=== PATIENT | male | born 1965 | race Two or more races ===

== ENCOUNTER 2017-02-11 14:49 | Emergency (ER) | payer BC ==
[~2017-02-11] VITALS: Ht 175.3 cm; Wt 93.9 kg
[2017-02-11] MEDS ORDERED: IV NORMAL SALINE 1000ML BAG 1,000 ML IV SCH (14:56)
[2017-02-11] MEDS ORDERED: FAMOTIDINE 20 MG/2 ML VIAL IVP ONE (15:00)
[2017-02-11] MEDS ORDERED: diphenhydrAMINE 50 MG/ML VIAL IV ONE (15:00)
[2017-02-11] MEDS ORDERED: methylPREDNISolone SOD SUCC PF 125 MG/2 ML VIAL. IV ONE (15:00)
[2017-02-11] MEDS ORDERED: EPINEPHrine 1 MG/ML VIAL IM ONE (15:00)
[2017-02-11] MEDS ORDERED: IPRATRPIUM/ALBUTEROL 0.5/2.5MG 3 ML NEBU. NEB ONE (15:00)
[2017-02-11 15:17] LABS: BASO % 0 % (0-3); EOS % 1 % (0-3); HEMATOCRIT 50.2 % (39.0-53.0); HEMOGLOBIN 17.1 g/dL (13.0-17.5); LYMPH # 6.2 x10^3/uL (1.0-4.8); LYMPH % 61 % (24-48); MEAN CORPUSCULAR HEMOGLOBIN 31 pg (25-35); MEAN CORPUSCULAR HGB CONC 34 g/dL (31-37); MEAN CORPUSCULAR VOLUME 93 fL (79-100); MONO % 5 % (0-9); NEUT % 33 % (31-73); PLATELET COUNT 353 x10^3/uL (140-400); RED BLOOD COUNT 5.43 x10^6/uL (4.30-5.70); RED CELL DISTRIBUTION WIDTH 13.3 % (11.5-14.5); WHITE BLOOD COUNT 10.3 x10^3/uL (4.0-11.0)
--- NOTE | 2017-02-11 15:31 | PHYS DOC ---
Past Medical History Past Medical History: No Pertinent History Past Surgical History: No Surgical History Alcohol Use: Occasionally Drug Use: None Adult General Chief Complaint Chief Complaint: ALLERGIC REACTION [facility] HPI Patient is a 51 year old male presenting to the emergency department for evaluation of vision changes diffuse rash and not feeling well. Patient says that this has happened multiple times in the past and he has been worked up for allergic reactions but no definitive etiology to his symptoms has ever been found. It is usually treated as an allergic reaction says that he gets better. Patient was eating [employer] and then went outside to wash the car when this reaction started. He ate same thing that he always does and that he has no known allergies. He describes the vision changes says that he only sees yellow. He says that he has a headache as well. Son is present to translate for patient and he is not wanting official language line sales representative malt liquors when I offered. Review of Systems Review of Systems Constitutional: Denies fever or chills [] Eyes: + change in visual acuity, redness. No eye pain [] HENT: Denies nasal congestion or sore throat [] Respiratory: Denies cough or shortness of breath [] Cardiovascular: No additional information not addressed in HPI [] GI: Denies abdominal pain, nausea, vomiting, bloody stools or diarrhea [] : Denies dysuria or hematuria [] Musculoskeletal: Denies back pain or joint pain [] Integument: + rash. No skin lesions [] Neurologic: + headache. No focal weakness or sensory changes [] Current Medications Current Medications Current Medications Medications (Trade) Dose Ordered Sig/Kevin Start Time Stop Time Status Last Admin Dose Admin Albuterol/ Ipratropium (Duoneb) 3 ml 1X ONCE 02/11/17 15:00 02/11/17 15:19 DC Diphenhydramine HCl (Benadryl) 50 mg 1X ONCE 02/11/17 15:00 02/11/17 15:19 DC 02/11/17 15:06 50 MG Epinephrine HCl (Adrenalin) 0.3 mg 1X ONCE 02/11/17 15:00 02/11/17 15:19 DC 02/11/17 14:57 0.3 MG Famotidine (Pepcid) 20 mg 1X ONCE 02/11/17 15:00 02/11/17 15:19 DC 6/3/17 15:06 20 MG Methylprednisolone Sodium Succinate (SOLU-Medrol 125MG VIAL) 125 mg 1X ONCE 02/11/17 15:00 02/11/17 15:19 DC 02/11/17 15:04 125 MG Potassium Chloride (Klor-Con) 40 meq 1X ONCE 02/11/17 16:00 02/11/17 16:01 DC Sodium Chloride 1,000 ml @ 1,000 mls/hr Q1H 02/11/17 14:56 02/11/17 15:55 DC 02/11/17 15:02 1,000 MLS/HR Allergies Allergies Allergies Coded Allergies Type Severity Reaction Last Updated Verified No Known Drug Allergies 02/11/17 No Physical Exam Physical Exam Constitutional: Well developed, well nourished, no acute distress, non-toxic appearance. [] HENT: Normocephalic, atraumatic, bilateral external ears normal, oropharynx erythematous but there is no swelling in his airway is very patent. Eyes: PERRLA, EOMI, conjunctiva injected bilaterally Neck: Normal range of motion, no tenderness, supple, no stridor. [] Cardiovascular:Heart rate regular rhythm, no murmur [] Lungs & Thorax: Bilateral breath sounds with expiratory wheezes noted Abdomen: Bowel sounds normal, soft, no tenderness, no masses, no pulsatile masses. [] Skin: Diffuse erythematous rash, few hives noted on neck and chest Back: No tenderness, no CVA tenderness. [] Extremities: No tenderness, no cyanosis, no clubbing, ROM intact, no edema. [] Neurologic: Alert and oriented X 3, normal motor function, normal sensory function, no focal deficits noted. [] Current Patient Data Vital Signs Vital Signs Date Time Temp Pulse Resp B/P (MAP) Pulse Ox O2 Delivery O2 Flow Rate FiO2 02/11/17 16:08 94 Room Air 02/11/17 14:49 97.4 80 22 150/80 (103) 97.4 Lab Values Laboratory Tests Test 02/11/17 14:52 White Blood Count 10.3 x10^3/uL (4.0-11.0) Red Blood Count 5.43 x10^6/uL (4.30-5.70) Hemoglobin 17.1 g/dL (13.0-17.5) Hematocrit 50.2 % (39.0-53.0) Mean Corpuscular Volume 93 fL (79-100) Mean Corpuscular Hemoglobin 31 pg (25-35) Mean Corpuscular Hemoglobin Concent 34 g/dL (31-37) Red Cell Distribution Width 13.3 % (11.5-14.5) Platelet Count 353 x10^3/uL (140-400) Neutrophils (%) (Auto) 33 % (31-73) Lymphocytes (%) (Auto) 61 % (24-48) H Monocytes (%) (Auto) 5 % (0-9) Eosinophils (%) (Auto) 1 % (0-3) Basophils (%) (Auto) 0 % (0-3) Neutrophils # (Auto) 3.4 x10^3uL (1.8-7.7) Lymphocytes # (Auto) 6.2 x10^3/uL (1.0-4.8) H Monocytes # (Auto) 0.5 x10^3/uL (0.0-1.1) Eosinophils # (Auto) 0.1 x10^3/uL (0.0-0.7) Basophils # (Auto) 0.0 x10^3/uL (0.0-0.2) Platelet Estimate Adequate (ADEQUATE) Sodium Level 147 mmol/L (136-145) H Potassium Level 3.1 mmol/L (3.5-5.1) L Chloride Level 108 mmol/L (98-107) H Carbon Dioxide Level 24 mmol/L (21-32) Anion Gap 15 (6-14) H Blood Urea Nitrogen 20 mg/dL (8-26) Creatinine 1.5 mg/dL (0.7-1.3) H Estimated GFR (Cockcroft-Gault) 49.7 BUN/Creatinine Ratio 13 (6-20) Glucose Level 146 mg/dL (70-99) H Calcium Level 9.2 mg/dL (8.5-10.1) Total Bilirubin 0.5 mg/dL (0.2-1.0) Direct Bilirubin 0.1 mg/dL (0.0-0.2) Aspartate Amino Transferase (AST) 26 U/L (15-37) Alanine Aminotransferase (ALT) 39 U/L (16-63) Alkaline Phosphatase 121 U/L (46-116) H Creatine Kinase 270 U/L (39-308) Total Protein 7.2 g/dL (6.4-8.2) Albumin 3.8 g/dL (3.4-5.0) Albumin/Globulin Ratio 1.1 (1.0-1.7) Laboratory Tests 02/11/17 14:52 Laboratory Tests 02/11/17 14:52 EKG EKG [] Radiology/Procedures Radiology/Procedures Examination: CT head without contrast HISTORY: History of headache COMPARISON: None available TECHNIQUE: Axial CT images of the head was performed without contrast Exposure: One or more of the following individualized dose reduction techniques were utilized for this examination: 1. Automated exposure control 2. Adjustment of the mA and/or kV according to patient size 3. Use of iterative reconstruction technique FINDINGS: There is no evidence of midline shift. There is no acute intracranial hemorrhage or extra-axial fluid collection identified. The jaramillo-white matter differentiation is maintained. Mild bilateral periventricular white matter hypodensities likely chronic small vessel ischemic disease. The visualized basal cisterns aren't effaced. The visualized paranasal sinuses, mastoid air cells are clear. IMPRESSION: No acute intracranial findings. Electronically signed by: Allan Cook MD (02/11/2017 4:14 PM) DICTATED and SIGNED BY: ALLAN COOK MD DATE: 02/11/17 1618 Course & Med Decision Making Course & Med Decision Making We will go ahead and treat as allergic reaction with epinephrine and Solu- Medrol Pepcid and Benadryl. Patient's symptoms are resolved and he was feeling better and asking to go home. He has some sort of unspecified allergic reaction to need specialty follow-up. I told him to follow with an laser print operator and I'll prescribe an epinephrine pen recommend steroids and Benadryl at home. Patient aware and agreeable with plan for discharge and verbalized understanding of the need for short-term follow-up in the strict ER return precautions discussed worsening pain rash shortness of breath or other general concerns. Dragon Disclaimer Dragon Disclaimer This electronic medical record was generated, in whole or in part, using a voice recognition dictation system. Departure Departure Impression: Primary Impression: Allergic reaction Additional Impression: Headache Disposition: 01 HOME, SELF-CARE Condition: GOOD Patient Instructions: Anaphylactic Reaction Additional Instructions: Follow with the specialist. Call this number . Use the epinephrine pen only if he has signs of anaphylaxis. Take 25-50 mg of Benadryl every 4-6 hours and come back to the ER sooner with any worsening pain rash shortness of breath or other general concerns. Scripts Epinephrine (EPINEPHRINE) 0.3 Mg/0.3 Ml Auto.injct 0.3 MG IJ PRN Y for ANAPHYLAXIS, #2 SYR Prov: DEBORA BANEGAS DO 02/11/17 Prednisone (PREDNISONE) 50 Mg Tablet 1 TAB PO DAILY, #4 TAB Prov: DEBORA BANEGAS DO 02/11/17 Problem Qualifiers Primary Impression: Allergic reaction Encounter type: initial encounter Qualified Codes: T78.40XA - Allergy, unspecified, initial encounter DEBORA BANEGAS DO Feb 11, 2017 15:31
[2017-02-11 15:41] LABS: CALCIUM 9.2 mg/dL (8.5-10.1); CREATININE 1.5 mg/dL (0.7-1.3); GFR 49.7; POTASSIUM 3.1 mmol/L (3.5-5.1)
[2017-02-11 15:49] LABS: ALBUMIN 3.8 g/dL (3.4-5.0); ALBUMIN/GLOBULIN RATIO 1.1 (1.0-1.7); DIRECT BILIRUBIN 0.1 mg/dL (0.0-0.2); TOTAL BILIRUBIN 0.5 mg/dL (0.2-1.0); TOTAL PROTEIN 7.2 g/dL (6.4-8.2)
[2017-02-11 15:54] LABS: PLT ESTIMATE ADEQUATE (ADEQUATE)
[2017-02-11] MEDS ORDERED: POTASSIUM CHLORIDE 20 MEQ TABLET.ER. PO ONE (16:00)
--- NOTE | 2017-02-11 16:17 | RAD ---
Examination: CT head without contrast HISTORY: History of headache COMPARISON: None available TECHNIQUE: Axial CT images of the head was performed without contrast Exposure: One or more of the following individualized dose reduction techniques were utilized for this examination: 1. Automated exposure control 2. Adjustment of the mA and/or kV according to patient size 3. Use of iterative reconstruction technique FINDINGS: There is no evidence of midline shift. There is no acute intracranial hemorrhage or extra-axial fluid collection identified. The jaramillo-white matter differentiation is maintained. Mild bilateral periventricular white matter hypodensities likely chronic small vessel ischemic disease. The visualized basal cisterns aren't effaced. The visualized paranasal sinuses, mastoid air cells are clear. IMPRESSION: No acute intracranial findings. Electronically signed by: Allan Cook MD (02/11/2017 4:14 PM)
[2017-02-11] MEDS ORDERED: EPIN0.3A8 IJ (16:36)
[2017-02-11] MEDS ORDERED: PRED50TA PO (16:36)
[2017-02-11 17:00] VITALS: BP 170/87
--- NOTE | 2017-02-12 07:42 | EKG ---
[facility] [address] [place] [address] Test Date: 2017-02-11 Test Time: 15:26:04 Pat Name: GERMAINE COVARRUBIAS Department: Room: Gender: M Care Attendant: : 1965 Requested By: DEBORA BANEGAS Order Number: [id number] Reading MD: Ian Santana Measurements Intervals [place] Rate: 67 P: 45 AK: 170 QRS: -10 QRSD: 86 T: 13 QT: 402 QTc: 428 Interpretive Statements SINUS RHYTHM LEFTWARD AXIS NONSPECIFIC ST-T WAVE CHANGES. RI6.01 Unconfirmed report No previous ECG available for comparison Electronically Signed On 02-15-2017 9:43:43 CDT by Ian Santana
--- NOTE | 2017-02-12 08:03 | RAD ---
Indication: Allergic reaction and dyspnea. Time of exam 1516 hours. The heart is moderately enlarged. Lungs are clear. The pulmonary vascularity is normal. No infiltrate, effusion or pneumothorax is detected. Impression: No acute feature identified.
== END 2017-02-11 17:24 | disposition home or self-care (01) ==
LOC: ER 14:49
DX: T78.40XA Allergy, unspecified, initial encounter (principal); R51 Headache
CPT/HCPCS: 36415; 70450; 71010; 80053; 80076; 82550; 85007; 85027; 93005; 96361; 96372; 96374; 96375; 99285; J0171; J1200; J2930; J7030; S0028